=== PATIENT | male | born 1940 ===

== ENCOUNTER 2018-07-31 10:36 | Emergency (ER) | payer MEDICARE, OTHER ==
[~2018-07-31] VITALS: Ht 177.8 cm; Wt 86.2 kg
[~2018-07-31 10:36] MED LIST: ALBU90OI; AMLO5; ASPI325 PO; ASPI81CH PO; Bactrim 400-801 EACH PO; CEPH500 PO; CLOP75 PO; Colace100 MG PO; DULO60; HYDCHL25 PO; Jantoven1 MG PO; LEVSOD100; LEVSOD100 PO; LISHYD2025 PO; LISI20 PO; METPRE4DP PO; Norco 5-325 Ta1 EACH PO; OMEP20ER PO; OXYACE5T PO; Percocet 5-3251 EACH PO; Ultram50 MG PO; Valium5 MG PO; WARF10 PO; WARF5 PO; XARELTO20 MG PO; [UNRECOGNIZED DRUG - REMARK] PO
[2018-07-31 11:11] LABS: BASOPHILS ABSOLUTE AUTO 0.02 K/mm3 (0.00-0.23); BASOPHILS PERCENT AUTO 0 % (0-2); EOSINOPHILS ABSOLUTE AUTO 0.03 K/mm3 (0.00-0.68); EOSINOPHILS PERCENT AUTO 0 % (0-6); Hematocrit 45.9 % (37.0-53.0); Hemoglobin 14.8 g/dL (13.5-17.5); IMMATURE GRAN ABSOLUTE AUTO 0.08 K/mm3 (0.00-0.10); IMMATURE GRAN PERCENT AUTO 1 % (0-1); LYMPHOCYTES ABSOLUTE AUTO 0.65 K/mm3 (0.84-5.20); LYMPHOCYTES PERCENT AUTO 7 % (21-46); MONOCYTES ABSOLUTE AUTO 0.59 K/mm3 (0.16-1.47); MONOCYTES PERCENT AUTO 6 % (4-13); Mean Corpuscular HGB 29.2 pg (26.0-34.0); Mean Corpuscular HGB Conc 32.2 g/dL (31.5-36.5); Mean Corpuscular Volume 91 fL (80-100); Mean Platelet Volume 9.9 fL (9.1-12.4); NEUTROPHILS ABSOLUTE AUTO 7.94 K/mm3 (1.96-9.15); NEUTROPHILS PERCENT AUTO 85 % (41-73); Platelet Count 176 K/mm3 (150-400); RDW Coefficient Variation 13.8 % (11.7-14.2); RDW Standard Deviation 45.5 fL (35.1-46.3); Red Blood Cell Count 5.07 M/mm3 (4.30-5.90); White Blood Cell Count 9.31 K/mm3 (4.00-11.30)
[2018-07-31 11:31] LABS: Alanine Aminotransfer (ALT/SGP 23 U/L (12-78); Albumin, Blood 4.1 g/dL (3.4-5.0); Albumin/Globulin Ratio 0.9 (0.8-1.8); Alk Phos 65 U/L (50-136); Anion Gap 8 mmol/L (6-16); Aspartate Aminotrans (AST/SGOT 18 U/L (12-37); Bilirubin, Total 0.6 mg/dL (0.1-1.0); Blood Urea Nitrogen 35 mg/dL (8-24); Bun/Creatinine Ratio 16.7 (12.0-20.0); CO2, Blood 25 mmol/L (21-32); Calcium, Blood 8.7 mg/dL (8.5-10.1); Chloride, Blood 102 mmol/L (98-108); Creatinine, Blood 2.09 mg/dL (0.60-1.20); Globulin, Blood 4.5 g/dL (2.2-4.0); Glomerular Filtration Rate 33 (60-); Glucose, Blood 143 mg/dL (70-99); Potassium, Blood 3.9 mmol/L (3.5-5.5); Sodium, Blood 135 mmol/L (136-145); Total Protein, Blood 8.6 g/dL (6.4-8.2); Troponin I <0.015 ng/mL (0.000-0.040)
[2018-07-31] MEDS ORDERED: ZESTORETIC 20-251 EA (11:54)
[2018-07-31] MEDS ORDERED: TAMS.4ER PO (11:54)
== END 2018-07-31 13:55 | disposition home or self-care (01) ==
LOC: ER 10:36
PROVIDERS: Emergency Medicine
DX: R55 Syncope and collapse (principal); E86.0 Dehydration; R19.7 Diarrhea, unspecified; R10.9 Unspecified abdominal pain; I10 Essential (primary) hypertension; J44.9 Chronic obstructive pulmonary disease, unspecified; E03.9 Hypothyroidism, unspecified; Z79.899 Other long term (current) drug therapy; F17.200 Nicotine dependence, unspecified, uncomplicated
CPT/HCPCS: 36415; 70450; 71046; 76705; 80053; 82947; 84484; 85025; 93005; 93010; 96361; 96374; 99284-25; J3010; J7030

== ENCOUNTER 2019-02-04 08:10 | Emergency (ER) | payer MEDICARE, OTHER ==
[~2019-02-04] VITALS: Ht 172.7 cm; Wt 78.5 kg
[~2019-02-04 08:10] MED LIST changes: +TAMS.4ER PO; +ZESTORETIC 20-251 EA
[2019-02-04] MEDS ORDERED: MOTION RELIEF25 MG PO (10:35)
== END 2019-02-04 11:17 | disposition home or self-care (01) ==
LOC: ER 08:10
DX: R42 Dizziness and giddiness (principal); Z79.899 Other long term (current) drug therapy; I10 Essential (primary) hypertension; J44.9 Chronic obstructive pulmonary disease, unspecified; E03.9 Hypothyroidism, unspecified; F17.210 Nicotine dependence, cigarettes, uncomplicated
CPT/HCPCS: 36415; 93005; 93010; 96361; 96374; 99283-25; J2405; J7030